=== PATIENT | male | born 1945 | race Two or more races ===

== ENCOUNTER 2018-06-17 13:20 | Inpatient (IN) | payer OTHER ==
[~2018-06-17] VITALS: Ht 170.2 cm; Wt 76.0 kg
[2018-06-17] MEDS ORDERED: PANTOPRAZOLE 80 MG in SODIUM CHLORIDE 0.9% 50 ML IVPB ONE (13:25)
[2018-06-17] MEDS ORDERED: PANTOPRAZOLE 80 MG in SODIUM CHLORIDE 0.9% 100 ML IV SCH (13:25)
--- NOTE | 2018-06-17 13:25 | NUR ---
PT BIB EMS FROM HOME. PT DIDN'T SHOW UP TO WORK FOR 2 DAYS, CALLED PT'S SON IN [place], SON CALLED FRIEND ED, WELFARE CHECK CALLED, POLICE FOUND PT IN BATHROOM DOWN, ALTERED BUT RESPONSIVE, PT REPORTS BEING IN TUB FOR ABOUT 18 HOURS. EMS TO SCENE, PT BREATHING ABOUT 40X A MINUTE, TACHYCARDIC, HYPERTENSIVE, FIELD FSBS 488. EN ROUTE 1000ML NS GIVEN, CALCIUM AND BICARB GIVEN. PT ATTACHED TO MONITORS, FSBS 365 ON REPEAT, EKG DONE, DR. SORENSEN AT BEDSIDE UPON PT ARRIVAL. PT TREMULOUS, FRIEND STATES "HE SEEMS NOT HIM NORMAL SELF", PT ABLE TO ANSWER MOST QUESTIONS. PT HAS BILATERAL SHOULDER ABRASIONS, L BUTTOCK PRESSURE SITE THAT'S NOT BLANCHABLE, PT ALSO HAS BLANCHABLE SPOT ON TAILBONE. GENERALIZED BRUSING ON ALL EXTREMITIES, R FOREARM HAS THE WORST BRUSING BUT PT DENIES PAIN.
[2018-06-17] MEDS ORDERED: CEFTRIAXONE PMX 1GM/50ML 50 ML IVPB ONE (13:30)
[2018-06-17] MEDS ORDERED: SODIUM CHLORIDE 0.9% 1,000ML IVBOLUS ONE (13:30)
[2018-06-17] MEDS ORDERED: VANCOMYCIN PER PHARMACY IV ONE (13:30)
[2018-06-17 13:55] LABS: PH, VENOUS 7.259 pH (7.320-7.420)
[2018-06-17] MEDS ORDERED: LOSA25TA25 PO (13:56)
[2018-06-17] MEDS ORDERED: METF500T17 PO (13:56)
[2018-06-17 14:00] LABS: MEAN CORPUSCULAR HEMOGLOBIN 30.2 pg (27.5-34.5); MEAN CORPUSCULAR HGB CONC 34.2 g/dL (33.2-36.2); MEAN CORPUSCULAR VOLUME 88.3 fL (81-97); MEAN PLATELET VOLUME 8.9 fL (7.4-10.4); PLATELET COUNT 342 x10^3/uL (130-400); RED BLOOD COUNT 6.05 x10^6/uL (4.38-5.82); RED CELL DISTRIBUTION WIDTH 13.5 % (9.4-14.8)
[2018-06-17] MEDS ORDERED: PLEASE ENTER HEIGHT AND WEIGHT MC SCH (14:00)
[2018-06-17] MEDS ORDERED: PLEASE ENTER ALLERGIES MC SCH (14:00)
[2018-06-17 14:08] LABS: ALANINE AMINOTRANSFERASE 144 U/L (12-78); ALBUMIN 3.7 g/dL (3.4-5.0); CALCIUM 10.8 mg/dL (8.5-10.1); CREATININE 1.65 mg/dL (0.7-1.3)
[2018-06-17 14:10] LABS: INTERNATIONAL NORMALIZED RATIO 1.22 (0.93-1.1); PROTHROMBIN TIME 12.7 Seconds (9.6-11.5)
[2018-06-17 14:12] LABS: ALKALINE PHOSPHATASE 89 U/L (45-117); BILIRUBIN,TOTAL 1.4 mg/dL (0.2-1.0); TOTAL PROTEIN 7.6 g/dL (6.4-8.2); TROPONIN I 0.516 ng/mL (0.000-0.045)
[2018-06-17 14:30] LABS: ANION GAP 19 mmol/L (5-15); CHLORIDE 115 mmol/L (98-107)
[2018-06-17] MEDS ORDERED: CEFTRIAXONE PMX 1GM/50ML 50 ML ONE (14:30)
[2018-06-17] MEDS ORDERED: VANCOMYCIN 1,500 MG in SODIUM CHLORIDE 0.9% 250 ML IV ONE (14:30)
[2018-06-17 14:43] LABS: ACETONE, SERUM Small (20mg/dL) mg/dL (Negative)
[2018-06-17 14:48] LABS: MD YES
[2018-06-17 14:52] LABS: <RBC MORPHOLOGY> NORMAL; BAND#(MANUAL) 1.75 x10^3/uL; BANDS%(MANUAL) 7 % (0-7); LYMPHS% (MANUAL) 4 % (22-44); MONOS% (MANUAL) 4 % (2-9); SEG#(MANUAL) 21.25 x10^3/uL (1.8-6.8); SEGS% (MANUAL) 85 % (42-75)
[2018-06-17 14:53] LABS: <PLATELET ESTIMATE> ADEQUATE; <PLT MORPHOLOGY> NORMAL PLT MORPH; PMNS WITH VACUOLES 1+
[2018-06-17] MEDS ORDERED: REGULAR INSULIN 62.5 UNITS in SODIUM CHLORIDE 0.9% 249.375 ML IV PRN ×2 (15:00→17:00)
--- NOTE | 2018-06-17 15:10 | NUR ---
TASK RN: Pt to imaging, via sarwat, with this RN and graphic art technician.
[2018-06-17 15:16] LABS: CREATINE KINASE, TOTAL 21674 U/L (39-308)
[2018-06-17] MEDS ORDERED: OMNIPAQUE 350 MG/ML, 100ML BOTTLE ONE (15:25)
[2018-06-17 15:38] LABS: MICROSCOPIC INDICATED
[2018-06-17 15:57] LABS: CULTURE INDICATED? NO
[2018-06-17] MEDS ORDERED: NS + 40MEQ KCL 1,000 ML IV ONE ×2 (16:00→17:17)
--- NOTE | 2018-06-17 16:10 | NUR ---
ZURDO GARCIA [phone]
[2018-06-17] MEDS ORDERED: PHARMACY MAY ADJ FOR RENAL FX MC PRN (17:00)
[2018-06-17] MEDS ORDERED: OXYcodone IR 5MG TABLET PO PRN (17:00)
[2018-06-17] MEDS ORDERED: ONDANSETRON 2MG/ML, 2ML IVPush PRN (17:00)
[2018-06-17] MEDS ORDERED: ACETAMINOPHEN 325 MG TABLET PO PRN (17:00)
[2018-06-17] MEDS ORDERED: LORazepam 2 MG/ML, 1ML IVPush PRN (17:00)
[2018-06-17] MEDS ORDERED: VANCOMYCIN PER PHARMACY MC PRN (17:00)
[2018-06-17] MEDS ORDERED: MORPHINE SULFATE 4 MG/ML, 1ML IVPush PRN (17:00)
[2018-06-17] MEDS ORDERED: FILTER 0.22 MICRON IV ONE (17:30)
[2018-06-17] MEDS ORDERED: PHENYTOIN SODIUM 1,500 MG in SODIUM CHLORIDE 0.9% 100 ML IV ONE (17:30)
--- NOTE | 2018-06-17 17:32 | NUR ---
SILVINA AMAYA, FAMILY FRIEND AND ONLY LOCAL CONTACT, OKAY TO GIVE INFO TO, OKAY TO VISIT PATIENT. [phone]. ED WILL BE BACK TO VISIT PT TOMORROW.
[2018-06-17] MEDS ORDERED: PHARMACOKINETIC MONITORING MC PRN ×2 (18:00→21:00)
--- NOTE | 2018-06-17 18:59 | NUR ---
Report to MARGUERITE evans.
[2018-06-17] MEDS ORDERED: PHARMACOKINETIC CONSULTATION MC ONE (21:00)
[2018-06-17] MEDS: DEXTROSE 5% IV SCH (21:10)
[2018-06-17] MEDS: POTASSIUM CHLORIDE IV SCH (21:10)
[2018-06-17] MEDS: SODIUM BICARBONATE IV SCH (21:10)
[2018-06-17] MEDS: PIPERACILLIN/TAZO/PMX 3.375GM 50 ML IV SCH (21:52)
[2018-06-17] MEDS: LEVETIRACETAM 500 MG TABLET PO SCH (21:53)
[2018-06-17] MEDS: PANTOPRAZOLE 80 MG in SODIUM CHLORIDE 0.9% 100 ML IV SCH (22:31)
[2018-06-18 03:13] LABS: MEAN CORPUSCULAR HEMOGLOBIN 30.6 pg (27.5-34.5); MEAN CORPUSCULAR HGB CONC 34.5 g/dL (33.2-36.2); MEAN CORPUSCULAR VOLUME 88.6 fL (81-97); MEAN PLATELET VOLUME 8.4 fL (7.4-10.4); PLATELET COUNT 290 x10^3/uL (130-400); RED BLOOD COUNT 5.08 x10^6/uL (4.38-5.82); RED CELL DISTRIBUTION WIDTH 13.6 % (9.4-14.8)
[2018-06-18 03:23] LABS: ALANINE AMINOTRANSFERASE 138 U/L (12-78); ANION GAP 6 mmol/L (5-15); CALCIUM 8.4 mg/dL (8.5-10.1); CHLORIDE 122 mmol/L (98-107); CREATININE 1.05 mg/dL (0.7-1.3)
[2018-06-18 03:34] LABS: TROPONIN I 0.583 ng/mL (0.000-0.045)
[2018-06-18 03:43] LABS: MD YES
[2018-06-18 03:45] LABS: <PLATELET ESTIMATE> ADEQUATE; <PLT MORPHOLOGY> NORMAL PLT MORPH; <RBC MORPHOLOGY> NORMAL; BAND#(MANUAL) 0.72 x10^3/uL; BANDS%(MANUAL) 4 % (0-7); LYMPH#(MANUAL) 1.27 x10^3/uL (1-3.4); LYMPHS% (MANUAL) 7 % (22-44); MONOS#(MANUAL) 0.54 x10^3/uL (0.3-2.7); MONOS% (MANUAL) 3 % (2-9); SEG#(MANUAL) 15.57 x10^3/uL (1.8-6.8); SEGS% (MANUAL) 86 % (42-75)
[2018-06-18 03:52] LABS: ALKALINE PHOSPHATASE 64 U/L (45-117); BILIRUBIN,TOTAL 0.9 mg/dL (0.2-1.0); TOTAL PROTEIN 6.3 g/dL (6.4-8.2); VANCOMYCIN,RANDOM 5.6 mcg/mL
[2018-06-18 04:00] VITALS: BP 136/92
[2018-06-18 04:32] LABS: CREATINE KINASE, TOTAL 13186 U/L (39-308)
[2018-06-18] MEDS: SODIUM BICARBONATE IV SCH (04:49)
[2018-06-18] MEDS: POTASSIUM CHLORIDE IV SCH (04:49)
[2018-06-18] MEDS: DEXTROSE 5% IV SCH (04:49)
[2018-06-18] MEDS: PIPERACILLIN/TAZO/PMX 3.375GM 50 ML IV SCH ×3 (05:43→21:54)
[2018-06-18 06:19] LABS: INTERNATIONAL NORMALIZED RATIO 1.12 (0.93-1.1); PROTHROMBIN TIME 11.7 Seconds (9.6-11.5)
[2018-06-18] MEDS: PANTOPRAZOLE 80 MG in SODIUM CHLORIDE 0.9% 100 ML IV SCH ×2 (09:38→18:12)
[2018-06-18] MEDS: LEVETIRACETAM 500 MG TABLET PO SCH ×2 (09:40→21:54)
[2018-06-18] MEDS ORDERED: GLUCAGON 1 MG IM PRN (11:30)
[2018-06-18] MEDS ORDERED: DEXTROSE 4 GM TAB.CHEW PO PRN (11:30)
[2018-06-18] MEDS ORDERED: DEXTROSE 50%, 50ML SYRINGE IVPush PRN (11:30)
[2018-06-18] MEDS: VANCOMYCIN 1,300 MG in SODIUM CHLORIDE 0.9% 250 ML IV SCH ×2 (12:17→23:47)
[2018-06-18] MEDS: INSULIN GLARGINE 100 UNITS/ML, PEN SQ-INSULIN SCH ×2 (12:26→21:55)
[2018-06-18 13:19] LABS: CULTURE INDICATED? YES; MICROSCOPIC INDICATED
[2018-06-18] MEDS: SODIUM BICARBONATE 8.4% 75 MEQ in DEXTROSE 5% 1,000 ML IV SCH ×2 (13:41→23:47)
[2018-06-18 15:31] VITALS: BP 137/91
[2018-06-18] MEDS ORDERED: VANCOMYCIN 1,500 MG in SODIUM CHLORIDE 0.9% 250 ML IV SCH (15:33)
--- NOTE | 2018-06-18 17:07 | NUR ---
REC: Chopped diet with NTL; strict aspiration precautions; orange sheet with swallow precautions posted in patient's room Addendum: 06/18/18 at 1707 by Karine BUROGS Amended: Links added.
[2018-06-18] MEDS: POTASSIUM ACID PHOSPHATE 500 MG TABLET.SOL PO SCH ×2 (18:12→23:46)
[2018-06-18 19:23] VITALS: BP 160/96
[2018-06-18] MEDS: SODIUM CHLORIDE FLUSH 10ML SYR IVF SCH (21:00)
[2018-06-19 00:01] VITALS: BP 124/78
[2018-06-19] MEDS: PIPERACILLIN/TAZO/PMX 3.375GM 50 ML IV SCH ×4 (03:51→21:33)
[2018-06-19 04:32] LABS: ALBUMIN 2.7 g/dL (3.4-5.0); ANION GAP 4 mmol/L (5-15); CALCIUM 7.8 mg/dL (8.5-10.1); CHLORIDE 111 mmol/L (98-107)
[2018-06-19 04:42] LABS: MD NO
[2018-06-19 04:50] LABS: BASOPHILS # (AUTO) 0.02 x10^3/uL (0-0.1); BASOPHILS % (AUTO) 0 % (0-1); EOSINOPHILS % (AUTO) 0 % (1-7); LYMPHOCYTES # (AUTO) 1.54 x10^3/uL (1-3.4); LYMPHOCYTES % (AUTO) 14 % (22-44); MEAN CORPUSCULAR HEMOGLOBIN 29.5 pg (27.5-34.5); MEAN CORPUSCULAR HGB CONC 33.1 g/dL (33.2-36.2); MEAN PLATELET VOLUME 8.8 fL (7.4-10.4); MONOCYTES # (AUTO) 0.58 x10^3/uL (0.2-0.8); MONOCYTES % (AUTO) 5 % (2-9); NEUTROPHILS # (AUTO) 8.78 x10^3/uL (1.8-6.8); NEUTROPHILS % (AUTO) 80 % (42-75); PLATELET COUNT 237 x10^3/uL (130-400); RED BLOOD COUNT 4.38 x10^6/uL (4.38-5.82); RED CELL DISTRIBUTION WIDTH 13.4 % (9.4-14.8)
[2018-06-19 05:00] LABS: ALANINE AMINOTRANSFERASE 131 U/L (12-78); ALKALINE PHOSPHATASE 54 U/L (45-117); BILIRUBIN,TOTAL 1.2 mg/dL (0.2-1.0); CREATININE 0.97 mg/dL (0.7-1.3); TOTAL PROTEIN 5.7 g/dL (6.4-8.2)
[2018-06-19 05:03] LABS: CREATINE KINASE, TOTAL 10653 U/L (39-308)
[2018-06-19] MEDS: PANTOPRAZOLE 80 MG in SODIUM CHLORIDE 0.9% 100 ML IV SCH ×2 (05:13→14:30)
[2018-06-19] MEDS: POTASSIUM ACID PHOSPHATE 500 MG TABLET.SOL PO SCH ×2 (05:13→12:18)
[2018-06-19 06:28] VITALS: BP 112/72
[2018-06-19] MEDS: LEVETIRACETAM 500 MG TABLET PO SCH ×2 (09:31→20:18)
[2018-06-19] MEDS: SODIUM CHLORIDE FLUSH 10ML SYR IVF SCH ×2 (09:31→20:18)
[2018-06-19] MEDS: INSULIN GLARGINE 100 UNITS/ML, PEN SQ-INSULIN SCH ×2 (09:36→20:18)
[2018-06-19 10:27] LABS: MICROSCOPIC INDICATED
[2018-06-19] MEDS: VANCOMYCIN 1,300 MG in SODIUM CHLORIDE 0.9% 250 ML IV SCH (12:10)
[2018-06-19 13:42] VITALS: BP 143/81
[2018-06-19] MEDS: SODIUM BICARBONATE 8.4% 75 MEQ in DEXTROSE 5% 1,000 ML IV SCH (16:20)
[2018-06-19] MEDS ORDERED: POTASSIUM CHLORIDE 20 MEQ TAB.ER.PRT PO ONE (18:00)
[2018-06-19] MEDS: PANTOPRAZOLE 40 MG IV IVPush SCH (18:02)
[2018-06-19] MEDS: SODIUM CHLORIDE 0.9% 1,000 ML IV SCH (18:13)
[2018-06-19 19:44] VITALS: BP 146/81
[2018-06-19] MEDS: ATORVASTATIN 40 MG TABLET PO SCH (20:18)
[2018-06-20 00:47] VITALS: BP 124/69
[2018-06-20] MEDS: VANCOMYCIN 1,300 MG in SODIUM CHLORIDE 0.9% 250 ML IV SCH ×2 (00:55→12:09)
[2018-06-20] MEDS: PIPERACILLIN/TAZO/PMX 3.375GM 50 ML IV SCH ×2 (03:34→09:32)
[2018-06-20] MEDS: PANTOPRAZOLE 40 MG IV IVPush SCH ×2 (05:13→18:41)
[2018-06-20 05:44] LABS: BASOPHILS # (AUTO) 0.03 x10^3/uL (0-0.1); BASOPHILS % (AUTO) 0 % (0-1); EOSINOPHILS # (AUTO) 0.12 x10^3/uL (0-0.4); EOSINOPHILS % (AUTO) 2 % (1-7); LYMPHOCYTES # (AUTO) 1.62 x10^3/uL (1-3.4); LYMPHOCYTES % (AUTO) 20 % (22-44); MD NO; MEAN CORPUSCULAR HEMOGLOBIN 30.7 pg (27.5-34.5); MEAN CORPUSCULAR HGB CONC 34.1 g/dL (33.2-36.2); MEAN PLATELET VOLUME 8.1 fL (7.4-10.4); MONOCYTES # (AUTO) 0.45 x10^3/uL (0.2-0.8); MONOCYTES % (AUTO) 6 % (2-9); NEUTROPHILS # (AUTO) 6.05 x10^3/uL (1.8-6.8); NEUTROPHILS % (AUTO) 73 % (42-75); PLATELET COUNT 191 x10^3/uL (130-400); RED BLOOD COUNT 4.08 x10^6/uL (4.38-5.82); RED CELL DISTRIBUTION WIDTH 13.3 % (9.4-14.8)
[2018-06-20 05:59] LABS: CHLORIDE 112 mmol/L (98-107)
[2018-06-20 06:28] LABS: ALANINE AMINOTRANSFERASE 134 U/L (12-78); ALBUMIN 2.6 g/dL (3.4-5.0); ALKALINE PHOSPHATASE 49 U/L (45-117); ANION GAP 5 mmol/L (5-15); CALCIUM 7.6 mg/dL (8.5-10.1); CREATINE KINASE, TOTAL 10941 U/L (39-308); CREATININE 0.73 mg/dL (0.7-1.3); TOTAL PROTEIN 5.5 g/dL (6.4-8.2)
[2018-06-20 07:06] VITALS: BP 142/72
[2018-06-20] MEDS ORDERED: POTASSIUM CHLORIDE 20 MEQ TAB.ER.PRT PO ONE (07:30)
[2018-06-20] MEDS: LEVETIRACETAM 500 MG TABLET PO SCH ×2 (09:32→20:56)
[2018-06-20] MEDS: INSULIN GLARGINE 100 UNITS/ML, PEN SQ-INSULIN SCH ×2 (09:33→20:57)
[2018-06-20] MEDS: SODIUM CHLORIDE FLUSH 10ML SYR IVF SCH ×2 (09:34→20:57)
[2018-06-20] MEDS: SODIUM CHLORIDE 0.9% 1,000 ML IV SCH ×2 (09:35→20:58)
[2018-06-20 15:03] VITALS: BP 155/80
[2018-06-20 18:40] VITALS: BP 154/88
[2018-06-20] MEDS: ATORVASTATIN 40 MG TABLET PO SCH (20:57)
[2018-06-21 00:57] LABS: MICROSCOPIC AUTO
[2018-06-21 01:01] VITALS: BP 136/81
[2018-06-21] MEDS: SODIUM CHLORIDE 0.9% 1,000 ML IV SCH ×3 (05:38→12:42)
[2018-06-21] MEDS: PANTOPRAZOLE 40 MG IV IVPush SCH ×2 (05:38→17:49)
[2018-06-21 06:41] VITALS: BP 113/69
[2018-06-21] MEDS: INSULIN GLARGINE 100 UNITS/ML, PEN SQ-INSULIN SCH ×2 (09:25→20:55)
[2018-06-21] MEDS: LEVETIRACETAM 500 MG TABLET PO SCH ×2 (09:25→20:42)
[2018-06-21] MEDS: SODIUM CHLORIDE FLUSH 10ML SYR IVF SCH ×2 (09:26→20:42)
[2018-06-21 12:59] VITALS: BP 130/82
[2018-06-21 19:37] VITALS: BP 149/88
[2018-06-21] MEDS: ATORVASTATIN 40 MG TABLET PO SCH (20:42)
[2018-06-22 01:53] VITALS: BP 137/84
[2018-06-22] MEDS: SODIUM CHLORIDE 0.9% 1,000 ML IV SCH ×2 (02:02→13:15)
[2018-06-22] MEDS: PANTOPRAZOLE 40 MG IV IVPush SCH ×2 (05:21→16:54)
[2018-06-22 05:47] LABS: BASOPHILS # (AUTO) 0.01 x10^3/uL (0-0.1); BASOPHILS % (AUTO) 0 % (0-1); EOSINOPHILS % (AUTO) 2 % (1-7); LYMPHOCYTES % (AUTO) 16 % (22-44); MD NO; MEAN CORPUSCULAR HEMOGLOBIN 30.8 pg (27.5-34.5); MEAN CORPUSCULAR HGB CONC 34.4 g/dL (33.2-36.2); MEAN CORPUSCULAR VOLUME 89.5 fL (81-97); MEAN PLATELET VOLUME 7.8 fL (7.4-10.4); MONOCYTES # (AUTO) 0.47 x10^3/uL (0.2-0.8); MONOCYTES % (AUTO) 6 % (2-9); NEUTROPHILS # (AUTO) 6.56 x10^3/uL (1.8-6.8); NEUTROPHILS % (AUTO) 76 % (42-75); PLATELET COUNT 246 x10^3/uL (130-400); RED BLOOD COUNT 4.29 x10^6/uL (4.38-5.82); RED CELL DISTRIBUTION WIDTH 12.9 % (9.4-14.8)
[2018-06-22 05:54] LABS: ALBUMIN 2.8 g/dL (3.4-5.0); ANION GAP 5 mmol/L (5-15); CALCIUM 8.3 mg/dL (8.5-10.1); CHLORIDE 111 mmol/L (98-107)
[2018-06-22 06:09] LABS: ALANINE AMINOTRANSFERASE 125 U/L (12-78); ALKALINE PHOSPHATASE 54 U/L (45-117); BILIRUBIN,TOTAL 0.8 mg/dL (0.2-1.0); CREATINE KINASE, TOTAL 5577 U/L (39-308); CREATININE 0.61 mg/dL (0.7-1.3); TOTAL PROTEIN 5.9 g/dL (6.4-8.2)
[2018-06-22 06:38] VITALS: BP 138/85
[2018-06-22] MEDS: LEVETIRACETAM 500 MG TABLET PO SCH ×2 (08:30→21:04)
[2018-06-22] MEDS: INSULIN GLARGINE 100 UNITS/ML, PEN SQ-INSULIN SCH ×2 (08:31→21:12)
[2018-06-22] MEDS: SODIUM CHLORIDE FLUSH 10ML SYR IVF SCH ×2 (08:31→21:04)
[2018-06-22] MEDS ORDERED: POTASSIUM CHLORIDE 20 MEQ TAB.ER.PRT PO ONE (13:00)
[2018-06-22 13:25] VITALS: BP 142/79
--- NOTE | 2018-06-22 16:33 | NUR ---
REC THIN/CHOPPED; swallow precautions sheet at bedside Addendum: 06/22/18 at 1634 by Porsche BURGOS Amended: Links added.
[2018-06-22 18:52] VITALS: BP 120/75
[2018-06-22] MEDS: ATORVASTATIN 40 MG TABLET PO SCH (21:04)
[2018-06-23 01:30] VITALS: BP 125/73
[2018-06-23] MEDS: PANTOPRAZOLE 40 MG IV IVPush SCH (05:23)
[2018-06-23 06:12] LABS: BASOPHILS # (AUTO) 0.02 x10^3/uL (0-0.1); BASOPHILS % (AUTO) 0 % (0-1); EOSINOPHILS # (AUTO) 0.42 x10^3/uL (0-0.4); EOSINOPHILS % (AUTO) 5 % (1-7); LYMPHOCYTES # (AUTO) 1.43 x10^3/uL (1-3.4); LYMPHOCYTES % (AUTO) 16 % (22-44); MD NO; MEAN CORPUSCULAR HEMOGLOBIN 30.8 pg (27.5-34.5); MEAN CORPUSCULAR HGB CONC 34.4 g/dL (33.2-36.2); MEAN CORPUSCULAR VOLUME 89.7 fL (81-97); MEAN PLATELET VOLUME 7.7 fL (7.4-10.4); MONOCYTES # (AUTO) 0.51 x10^3/uL (0.2-0.8); MONOCYTES % (AUTO) 6 % (2-9); NEUTROPHILS # (AUTO) 6.62 x10^3/uL (1.8-6.8); NEUTROPHILS % (AUTO) 74 % (42-75); PLATELET COUNT 272 x10^3/uL (130-400); RED BLOOD COUNT 4.46 x10^6/uL (4.38-5.82); RED CELL DISTRIBUTION WIDTH 13.2 % (9.4-14.8)
[2018-06-23 06:21] VITALS: BP 134/84
[2018-06-23 06:23] LABS: CHLORIDE 112 mmol/L (98-107)
[2018-06-23 06:45] LABS: ALANINE AMINOTRANSFERASE 108 U/L (12-78); ALKALINE PHOSPHATASE 53 U/L (45-117); ANION GAP 7 mmol/L (5-15); BILIRUBIN,TOTAL 0.8 mg/dL (0.2-1.0); CALCIUM 8.2 mg/dL (8.5-10.1); CREATINE KINASE, TOTAL 2530 U/L (39-308); CREATININE 0.71 mg/dL (0.7-1.3); TOTAL PROTEIN 6.1 g/dL (6.4-8.2)
[2018-06-23] MEDS ORDERED: ATOR40TA78 PO (07:10)
[2018-06-23] MEDS ORDERED: LEVE500T53 PO (07:10)
[2018-06-23] MEDS ORDERED: INSU100I13 SQ-INSULIN (07:10)
[2018-06-23] MEDS ORDERED: POTASSIUM CHLORIDE 20 MEQ TAB.ER.PRT PO ONE (08:30)
[2018-06-23] MEDS: INSULIN GLARGINE 100 UNITS/ML, PEN SQ-INSULIN SCH (08:44)
[2018-06-23] MEDS: LEVETIRACETAM 500 MG TABLET PO SCH (08:45)
[2018-06-23] MEDS: SODIUM CHLORIDE FLUSH 10ML SYR IVF SCH (09:00)
[2018-06-23] MEDS: SODIUM CHLORIDE 0.9% 1,000 ML IV SCH (09:00)
== END 2018-06-23 13:12 | DRG 871 ==
LOC: ED 14:31 → SUATTDRO 16:16 → EDIP 16:49 → CCU 20:01 → 4WST 06-18 14:00
PROVIDERS: ADMIT Internal Medicine; ATTEND Internal Medicine
PROC: 0T9B70Z Drainage of Bladder with Drainage Device, Via Natural or Artificial Opening (ICD-10-PCS; principal; 2018-06-17)
PROC: 02HV33Z Insertion of Infusion Device into Superior Vena Cava, Percutaneous Approach (ICD-10-PCS; 2018-06-17)
DX: A41.9 Sepsis, unspecified organism (principal); J96.01 Acute respiratory failure with hypoxia; E11.10 Type 2 diabetes mellitus with ketoacidosis without coma; I21.4 Non-ST elevation (NSTEMI) myocardial infarction; I63.511 Cerebral infarction due to unspecified occlusion or stenosis of right middle cerebral artery; J18.9 Pneumonia, unspecified organism; I62.00 Nontraumatic subdural hemorrhage, unspecified; N17.9 Acute kidney failure, unspecified; M62.82 Rhabdomyolysis; E87.0 Hyperosmolality and hypernatremia; G40.209 Localization-related (focal) (partial) symptomatic epilepsy and epileptic syndromes with complex partial seizures, not intractable, without status epilepticus; G93.40 Encephalopathy, unspecified; K92.0 Hematemesis; D75.1 Secondary polycythemia; E87.6 Hypokalemia; E83.39 Other disorders of phosphorus metabolism; E83.52 Hypercalcemia; E86.0 Dehydration; I10 Essential (primary) hypertension; R32 Unspecified urinary incontinence; R65.20 Severe sepsis without septic shock; Z79.4 Long term (current) use of insulin; Z79.82 Long term (current) use of aspirin; Z91.81 History of falling; Z79.84 Long term (current) use of oral hypoglycemic drugs
CPT/HCPCS: 36415; 36556; 70450; 70496; 70498; 70551; 71045; 71275; 74230; 80053; 80202; 81001; 82010; 82140; 82550; 82803; 82962; 83605; 83690; 83735; 83880; 83930; 84100; 84484; 85025; 85610; 85730; 86850; 86900; 87040; 87081; 87086; 93005; 93306; 95819; 99292; G0378; J0696; J1165; J1815; J2543; J3370; J3480; J7070; Q9967; C9113; J7030; J7050

== ENCOUNTER 2018-09-05 15:43 | Inpatient (IN) | payer OTHER ==
[~2018-09-05] VITALS: Ht 170.2 cm; Wt 65.0 kg
[~2018-09-05 15:43] MED LIST: ATOR40TA78 PO; INSU100I13 SQ-INSULIN; LEVE500T53 PO; LOSA25TA25 PO; METF500T17 PO
--- NOTE | 2018-09-05 16:00 | NUR ---
EKG DONE IN TRIAGE
[2018-09-05] MEDS ORDERED: LORazepam 2 MG/ML, 1ML IM ONE (16:30)
[2018-09-05 16:38] LABS: BASOPHILS # (AUTO) 0.01 x10^3/uL (0-0.1); BASOPHILS % (AUTO) 0 % (0-1); EOSINOPHILS # (AUTO) 0.28 x10^3/uL (0-0.4); EOSINOPHILS % (AUTO) 3 % (1-7); LYMPHOCYTES # (AUTO) 2.01 x10^3/uL (1-3.4); LYMPHOCYTES % (AUTO) 24 % (22-44); MD NO; MEAN CORPUSCULAR HEMOGLOBIN 29.7 pg (27.5-34.5); MEAN CORPUSCULAR HGB CONC 33.4 g/dL (33.2-36.2); MEAN CORPUSCULAR VOLUME 88.8 fL (81-97); MEAN PLATELET VOLUME 7.1 fL (7.4-10.4); MONOCYTES # (AUTO) 0.39 x10^3/uL (0.2-0.8); MONOCYTES % (AUTO) 5 % (2-9); NEUTROPHILS # (AUTO) 5.89 x10^3/uL (1.8-6.8); NEUTROPHILS % (AUTO) 69 % (42-75); PLATELET COUNT 319 x10^3/uL (130-400); RED BLOOD COUNT 5.13 x10^6/uL (4.38-5.82); RED CELL DISTRIBUTION WIDTH 13.6 % (9.4-14.8)
[2018-09-05 16:47] LABS: ALBUMIN 4.3 g/dL (3.4-5.0); ANION GAP 7 mmol/L (5-15); CALCIUM 9.4 mg/dL (8.5-10.1); CHLORIDE 105 mmol/L (98-107); CREATININE 0.92 mg/dL (0.7-1.3)
[2018-09-05] MEDS ORDERED: LORazepam 2 MG/ML, 1ML ONE (16:52)
--- NOTE | 2018-09-05 17:09 | NUR ---
IS AT THE BEDSIDE FOR CONSULT
--- NOTE | 2018-09-05 17:12 | NUR ---
PER , I AM TO HOLD PIV, AND LORAZEPEM FOR NOW UNLESS SYMPTOMS WERE TO WORSEN.
--- NOTE | 2018-09-05 18:11 | NUR ---
WE ARE AWAITING A CALL BACK FROM NEUROLOGY PRIOR TO FORMULATING ANY FURTHER PLAN OF CARE.
[2018-09-05] MEDS ORDERED: LEVETIRACETAM 1,000 MG in SODIUM CHLORIDE 0.9% 100 ML IV ONE (18:30)
--- NOTE | 2018-09-05 18:40 | NUR ---
pt resting comfortably on an e.r. gurney. there are no acute changes noted at this time, but I will continue to monitor and treat as ordered, as well as prn.
--- NOTE | 2018-09-05 18:54 | NUR ---
JAE (MARGUERITE) IS ASSUMING CARE OF THIS PT AT THIS TIME. SBAR REPORT WAS EXCHANGED AT THE BEDSIDE.
--- NOTE | 2018-09-05 19:07 | NUR ---
report to dominique jacobo for room 484-1
[2018-09-05] MEDS ORDERED: TEMAZEPAM 15 MG CAPSULE PO PRN (19:30)
[2018-09-05] MEDS ORDERED: ENALAPRILAT 1.25 MG/ML, 2ML IVPush PRN (19:30)
[2018-09-05] MEDS ORDERED: DOCUSATE 100 MG CAPSULE PO PRN (19:30)
[2018-09-05] MEDS ORDERED: ACETAMINOPHEN 325 MG TABLET PO PRN (19:30)
[2018-09-05] MEDS ORDERED: ONDANSETRON ODT 4 MG PO PRN (19:30)
[2018-09-05 19:34] VITALS: BP 129/86
[2018-09-05 20:29] VITALS: BP 129/86
[2018-09-05] MEDS: LEVETIRACETAM 500 MG TABLET PO SCH (20:45)
[2018-09-05] MEDS ORDERED: ATORVASTATIN 40 MG TABLET PO SCH (21:00)
[2018-09-06 02:48] VITALS: BP 124/77
[2018-09-06 05:58] LABS: BASOPHILS # (AUTO) 0.04 x10^3/uL (0-0.1); BASOPHILS % (AUTO) 1 % (0-1); EOSINOPHILS % (AUTO) 13 % (1-7); LYMPHOCYTES # (AUTO) 2.27 x10^3/uL (1-3.4); LYMPHOCYTES % (AUTO) 36 % (22-44); MD NO; MEAN CORPUSCULAR HEMOGLOBIN 30.3 pg (27.5-34.5); MEAN CORPUSCULAR HGB CONC 33.4 g/dL (33.2-36.2); MEAN CORPUSCULAR VOLUME 90.6 fL (81-97); MEAN PLATELET VOLUME 7.6 fL (7.4-10.4); MONOCYTES # (AUTO) 0.32 x10^3/uL (0.2-0.8); MONOCYTES % (AUTO) 5 % (2-9); NEUTROPHILS # (AUTO) 2.95 x10^3/uL (1.8-6.8); NEUTROPHILS % (AUTO) 46 % (42-75); PLATELET COUNT 285 x10^3/uL (130-400); RED BLOOD COUNT 4.92 x10^6/uL (4.38-5.82); RED CELL DISTRIBUTION WIDTH 13.9 % (9.4-14.8)
[2018-09-06 06:07] LABS: ANION GAP 6 mmol/L (5-15); CALCIUM 9.3 mg/dL (8.5-10.1); CHLORIDE 108 mmol/L (98-107); CREATININE 0.87 mg/dL (0.7-1.3)
[2018-09-06 06:56] VITALS: BP 124/77
[2018-09-06] MEDS: LEVETIRACETAM 500 MG TABLET PO SCH (09:18)
[2018-09-06] MEDS: POTASSIUM CHLORIDE 20 MEQ TAB.ER.PRT PO SCH ×2 (09:18→13:08)
[2018-09-06 13:02] VITALS: BP 132/85
[2018-09-06] MEDS ORDERED: POTA20TA14 PO (17:25)
== END 2018-09-06 18:24 | disposition home or self-care (01) | DRG 100 ==
LOC: ED 16:10 → EDIP 18:31 → 4EST 19:29
PROVIDERS: ADMIT Family Medicine; ATTEND Family Medicine
DX: R56.9 Unspecified convulsions (principal); I62.03 Nontraumatic chronic subdural hemorrhage; E11.9 Type 2 diabetes mellitus without complications; E87.6 Hypokalemia; I11.9 Hypertensive heart disease without heart failure; K21.9 Gastro-esophageal reflux disease without esophagitis; Z79.84 Long term (current) use of oral hypoglycemic drugs; Z79.899 Other long term (current) drug therapy; Z86.73 Personal history of transient ischemic attack (TIA), and cerebral infarction without residual deficits; Z87.891 Personal history of nicotine dependence
CPT/HCPCS: 36415; 70450; 80048; 82040; 82962; 83735; 85025; 93005; 99285; G0378; J1953

== ENCOUNTER 2019-01-25 19:32 | Emergency (ER) | payer OTHER ==
[~2019-01-25] VITALS: Ht 172.7 cm; Wt 68.0 kg
[~2019-01-25 19:32] MED LIST changes: +POTA20TA14 PO
--- NOTE | 2019-01-25 19:46 | NUR ---
NOT IN LOBBY X 1
--- NOTE | 2019-01-25 19:53 | NUR ---
PT BIB EMS FROM HOME AFTER LEFT SIDE OF BODY STARTED TO TWITCH AND CLENCH INVOLUNTARILY. RECENT NEW DX OF SEIZURES IN MAY. PT STATES TODAY HAS TAKEN 2500MG TOTAL OF KEPPARA WITH THE ADDED 500MG WITH HIS EVENING DOSE WHEN TWICHING STARTED. A&OX4. IV PLACED, LABS COLLECTED. AT BEDSIDE FOR ASSESSMENT. ALL MONITORING CONNECTED, TACHY HR AND HTN NOTED. CALL LIGHT WITHIN REACH
[2019-01-25] MEDS ORDERED: LORazepam 2 MG/ML, 1ML IVPush ONE (20:00)
[2019-01-25] MEDS ORDERED: LEVETIRACETAM 1,000 MG in SODIUM CHLORIDE 0.9% 100 ML IV ONE (20:00)
[2019-01-25] MEDS ORDERED: LORazepam 2 MG/ML, 1ML ONE (20:05)
--- NOTE | 2019-01-25 20:11 | NUR ---
SEIZURE ACTIVITY HAS STOPPED AT THIS TIME. ORDERS RECEIVED. PT MEDICATED. AWAITING KEPPRA AT THIS TIME AND TEST RESULTS. CALL LIGHT WITHINR EACH
--- NOTE | 2019-01-25 20:28 | NUR ---
PT TAKEN TO CT
[2019-01-25] MEDS ORDERED: SODIUM CHLORIDE 0.9% 1,000ML IVBOLUS ONE (20:30)
[2019-01-25 20:50] LABS: BASOPHILS # (AUTO) 0.03 x10^3/uL (0-0.1); BASOPHILS % (AUTO) 0 % (0-1); EOSINOPHILS # (AUTO) 0.09 x10^3/uL (0-0.4); EOSINOPHILS % (AUTO) 1 % (1-7); LYMPHOCYTES # (AUTO) 2.47 x10^3/uL (1-3.4); LYMPHOCYTES % (AUTO) 37 % (22-44); MD NO; MEAN CORPUSCULAR HEMOGLOBIN 30.5 pg (27.5-34.5); MEAN CORPUSCULAR HGB CONC 33.4 g/dL (33.2-36.2); MEAN CORPUSCULAR VOLUME 91.2 fL (81-97); MEAN PLATELET VOLUME 7.7 fL (7.4-10.4); MONOCYTES # (AUTO) 0.34 x10^3/uL (0.2-0.8); MONOCYTES % (AUTO) 5 % (2-9); NEUTROPHILS # (AUTO) 3.83 x10^3/uL (1.8-6.8); NEUTROPHILS % (AUTO) 57 % (42-75); PLATELET COUNT 283 x10^3/uL (130-400); RED BLOOD COUNT 5.06 x10^6/uL (4.38-5.82); RED CELL DISTRIBUTION WIDTH 13.3 % (9.4-14.8)
[2019-01-25 20:59] LABS: ALBUMIN 4.4 g/dL (3.4-5.0); ANION GAP 17 mmol/L (5-15); CALCIUM 8.9 mg/dL (8.5-10.1); CHLORIDE 95 mmol/L (98-107)
[2019-01-25 21:00] VITALS: BP 111/76
[2019-01-25 21:04] LABS: CREATININE 1.52 mg/dL (0.7-1.3); TROPONIN I < 0.015 ng/mL (0.000-0.045)
--- NOTE | 2019-01-25 21:16 | NUR ---
ALL RESULTS BACK AT THIS TIME, CHART UP FOR RECHECK
[2019-01-25] MEDS ORDERED: POTASSIUM CHLORIDE 20 MEQ TAB.ER.PRT PO ONE (21:30)
[2019-01-25] MEDS ORDERED: POTASSIUM CHLORIDE 20 MEQ TAB.ER.PRT ONE (21:47)
== END 2019-01-25 22:07 | disposition home or self-care (01) ==
LOC: ED 22:01
DX: G40.309 Generalized idiopathic epilepsy and epileptic syndromes, not intractable, without status epilepticus (principal); E87.6 Hypokalemia; M62.838 Other muscle spasm; E86.0 Dehydration; I10 Essential (primary) hypertension; E11.9 Type 2 diabetes mellitus without complications; Z87.891 Personal history of nicotine dependence; Z86.73 Personal history of transient ischemic attack (TIA), and cerebral infarction without residual deficits
CPT/HCPCS: 36415; 70450; 80048; 82040; 84484; 85025; 93005; 96374; 99284; J2060; J7030